=== PATIENT | female | born 1945 | race Caucasian/White ===

== ENCOUNTER 2017-07-14 12:12 | Emergency (ER) | payer OTHER ==
--- NOTE | 2017-07-14 12:22 | DR.GENAD ---
HPI - HPI Comment HPI Comment: HISTORY BELOW. - Complaint/Symptoms Chief Complaint Doctors Comments: PATIENT HAD AMS. EMS HAD LOW GLUCOSE. D50 GIVEN. MENTAL STATUS IMPROVED. BP ELEVATED. KNOWN HYPERTENSIVE, HAVE NOT TAKEN BP MEDS TODAY. NO FEVER. NO CHEST PAIN, NO HISTORY OF TRAUMA. NO DYSURIA. Chief Complaint:: AMS. - Nurses notes reviewed Nurses Notes Review: Yes - Source History Provided: Patient - Mode of Arrival Mode of Arrival: Stretcher - Timing Came on: Suddenly - Duration Duration: Since Onset Duration: Minutes - Severity Severity: Moderate ROS - Review of Systems Constitutional: No Symptoms Reported Eyes: No Symptoms Reported ENTM: No Symptoms Reported Respiratoy: No Symptoms Reported Cardiovascular: Other (ELEVATED BP.) Gastrointestinal/Abdominal: No Symptoms Reported Genitourinary: No Symptoms Reported Neurological: No Symptoms Reported Musculoskeletal: No Symptoms Reported Integumentary: No Symptoms Reported Hematologic/Lymphatic: No Symptoms Reported Endocrine: Other (HYPOGLYCEMIA) All Other Systems: Reviewed and Negative Unable to Obtain Due To: Altered mental status PE - Vital Signs Vitals: Temperature 97.1 F Pulse Rate [Left Radial] 79 Pulse Rate 103 Respiratory Rate 20 Blood Pressure [Right Arm] 172/77 Blood Pressure 197/79 O2 Sat by Pulse Oximetry 99 - General Limitations: No Limitations General Appearance: Alert - Head Head Exam: Normal Inspection - Eyes Eye exam: Normal Appearance - ENT ENT Exam: Normal External Ear Exam External Ear Exam: Normal External Inspection TM/Canal Exam: Bilateral Normal Nose Exam: Normal Nose Exam Mouth Exam: Normal Inspection Throat Exam: Tonsillar Erythema - Neck Neck Exam: Trachea Midline - Chest Chest Inspection: Symmetric Chest Wall Rise - Respiratory Respiratory Exam: Normal Lung Sounds Bilat Respiratory Exam: Bilateral Clear to Auscultation - Cardiovascular Cardiovascular Exam: Regular Rate, Normal Rhythm, Normal Heart Sounds - Abdominal Exam Abdominal Exam: Normal Bowel Sounds, Soft. negative: Tenderness - Extremities Extremities Exam: Normal Inspection - Back Back Exam: Normal Inspection - Neurologic Neurological Exam: Alert, Oriented X3, CN II-XII Intact, Normal Gait, Reflexes Normal. negative: Motor Sensory Deficit - Psychiatric Psychiatric Exam: Normal Affect, Normal Mood - Skin Skin Exam: Normal Color MDM - Additional Information Additional Information Obtained From: Family - Differential Diagnosis Differential Diagnosis: HYPOGLYCEMIA, HYPERTENSION. Course - Treatment Treatment: SEE ORDERS. - Education/Counseling Education/Counseling: Patient, Family, Education Educated On: Treatment, Diagnosis, Needs for Follow Up ROR - Labs Reviewed Laboratory Results Reviewed?: Yes Result Diagrams: 07/14/17 12:40 07/14/17 12:40 Laboratory: WBC 14.8 X10^3/uL (3.6-10.0) H 07/14/17 12:40 RBC 4.36 X10^6/uL (3.5-5.4) 07/14/17 12:40 Hgb 12.9 g/dL (12.0-16.0) 07/14/17 12:40 Hct 39.1 % (36.0-47.0) 07/14/17 12:40 MCV 89.8 fL (80.0-100.0) 07/14/17 12:40 MCH 29.6 pg (27.0-34.0) 07/14/17 12:40 MCHC 33.0 g/dL (33.0-35.0) 07/14/17 12:40 RDW 14.6 % (11.6-16.5) 07/14/17 12:40 Plt Count 296 X10^3/uL (150.0-450.0) 07/14/17 12:40 MPV 6.7 fL (7.4-11.0) L 07/14/17 12:40 Neut % (Auto) 86.6 % (42.0-75.0) H 07/14/17 12:40 Lymph % (Auto) 4.4 % (21.0-51.0) L 07/14/17 12:40 [place] % (Auto) 8.8 % (0.0-13.0) 07/14/17 12:40 Eos % (Auto) 0.0 % (0.9-2.9) L 07/14/17 12:40 Baso % (Auto) 0.2 % (0.2-1.0) 07/14/17 12:40 Neut # (Auto) 12.9 x10^3/uL (2.2-4.8) H 07/14/17 12:40 Lymph # (Auto) 0.7 X10^3/uL (1.3-2.9) L 07/14/17 12:40 [place] # (Auto) 1.3 x10^3/uL (0.3-0.8) H 07/14/17 12:40 Eos # (Auto) 0.0 x10^3/uL (0.0-0.2) 07/14/17 12:40 Baso # (Auto) 0.0 X10^3/uL (0.0-0.1) 07/14/17 12:40 Absolute Nucleated RBC 0.0 /100WBC 07/14/17 12:40 Sodium 133 mmol/L (136-145) L 07/14/17 12:40 Corrected Sodium 136 mmol/L (136-145) 07/14/17 12:40 Potassium 3.9 mmol/L (3.5-5.1) 07/14/17 12:40 Chloride 97 mmol/L (98-107) L 07/14/17 12:40 Carbon Dioxide 16.7 mmol/L (21-32) L 07/14/17 12:40 BUN 31 mg/dL (7-18) H 07/14/17 12:40 Creatinine 1.60 mg/dL (0.55-1.02) H 07/14/17 12:40 Est GFR (MDRD) Af Amer 41 (>60) L 07/14/17 12:40 Est GFR (MDRD) Non-Af 33 (>60) L 07/14/17 12:40 Glucose 212 mg/dL (65-99) H 07/14/17 12:40 POC Glucose (mg/dL) 318 mg/dL (65-99) H 07/14/17 15:04 Calcium 8.5 mg/dL (8.5-10.1) 07/14/17 12:40 Corrected Calcium 9.1 mg/dL (8.5-10.1) 07/14/17 12:40 Total Bilirubin 0.40 mg/dL (0.2-1.0) 07/14/17 12:40 AST 29 Units/L (15-37) 07/14/17 12:40 ALT 32 Units/L (12-78) 07/14/17 12:40 Alkaline Phosphatase 83 Units/L (46-116) 07/14/17 12:40 Total Protein 6.9 g/dL (6.4-8.2) 07/14/17 12:40 Albumin 3.2 g/dL (3.4-5.0) L 07/14/17 12:40 Globulin 3.7 g/dL (2.5-4.5) 07/14/17 12:40 Albumin/Globulin Ratio 0.9 Ratio (1.1-2.1) L 07/14/17 12:40 Specimen Type Random urine 07/14/17 13:42 Urine Color Yellow (YELLOW) 07/14/17 13:42 Urine Appearance Slightly hazy (CLEAR) 07/14/17 13:42 Urine pH 5.0 (5.0 - 8.0) 07/14/17 13:42 Ur Specific [place] 1.015 (1.000-1.030) 07/14/17 13:42 Urine Protein Negative (NEGATIVE) 07/14/17 13:42 Urine Glucose (UA) 1+ (NEGATIVE) 07/14/17 13:42 Urine Ketones 2+ (NEGATIVE) 07/14/17 13:42 Urine Occult Blood 1+ (NEGATIVE) 07/14/17 13:42 Urine Nitrite Negative (NEGATIVE) 07/14/17 13:42 Urine Bilirubin Negative (NEGATIVE) 07/14/17 13:42 Urine Urobilinogen Normal (NORMAL) 07/14/17 13:42 Ur Leukocyte Esterase Negative (NEGATIVE) 07/14/17 13:42 Urine RBC 0-2 /HPF (NONE SEEN) 07/14/17 13:42 Urine WBC 0-2 /HPF (NONE SEEN) 07/14/17 13:42 Ur Squamous Epith Cells Rare /HPF (NEGATIVE) 07/14/17 13:42 Urine Bacteria Negative /HPF (NEGATIVE) 07/14/17 13:42 Hyaline Casts Rare /LPF (NEGATIVE) 07/14/17 13:42 Ur Culture Indicated? No/not indicated 07/14/17 13:42 - Diagnosis Discharge Problem: Hypoglycemia Hypertension Qualifiers: Hypertension type: essential hypertension Qualified Code(s): I10 - Essential ( primary) hypertension - Discharge Plan Disposition: 01 HOME, SELF-CARE Condition: Stable - Follow ups/Referrals Follow ups/Referrals: JENNA SALINAS [Primary Care Provider] - 3 days - Instructions Instructions: Hypertension, [id number], Hypoglycemia, Caiv-si-Fxts Additional Instructions: RETURN TO ED IF WORSE. HOLD YOUR MED TODAY AND TOMORROW. SEE YOUR DOCTOR IN AM. BLOOD SUGAR CHECK EVERY 4 HRS AT HOME AND CHART AND TAKE TO YOUR
[2017-07-14 12:29] VITALS: BMI 24.7
[2017-07-14 12:49] LABS: BASOPHILS % (AUTO) 0.2 % (0.2-1.0); HEMATOCRIT 39.1 % (36.0-47.0); HEMOGLOBIN 12.9 g/dL (12.0-16.0); LYMPHOCYTES # (AUTO) 0.7 X10^3/uL (1.3-2.9); LYMPHOCYTES % (AUTO) 4.4 % (21.0-51.0); MEAN CORPUSCULAR HEMOGLOBIN 29.6 pg (27.0-34.0); MEAN CORPUSCULAR VOLUME 89.8 fL (80.0-100.0); MEAN PLATELET VOLUME 6.7 fL (7.4-11.0); MONOCYTES # (AUTO) 1.3 x10^3/uL (0.3-0.8); MONOCYTES % (AUTO) 8.8 % (0.0-13.0); NEUTROPHILS # (AUTO) 12.9 x10^3/uL (2.2-4.8); NEUTROPHILS % (AUTO) 86.6 % (42.0-75.0); PLATELET COUNT 296 X10^3/uL (150.0-450.0); RED BLOOD COUNT 4.36 X10^6/uL (3.5-5.4); RED CELL DISTRIBUTION WIDTH 14.6 % (11.6-16.5); WHITE BLOOD COUNT 14.8 X10^3/uL (3.6-10.0)
[2017-07-14 13:02] LABS: ALBUMIN 3.2 g/dL (3.4-5.0); CALCIUM 8.5 mg/dL (8.5-10.1); CARBON DIOXIDE 16.7 mmol/L (21-32); COR CA(FOR HYPOALB) 9.1 mg/dL (8.5-10.1); CREATININE 1.6 mg/dL (0.55-1.02); TOTAL PROTEIN 6.9 g/dL (6.4-8.2)
[2017-07-14 13:52] LABS: BILIRUBIN,URINE NEGATIVE (NEGATIVE); BLOOD/HEMOGLOBIN,URINE 1+ (NEGATIVE); GLUCOSE, URINE 1+ (NEGATIVE); KETONES,URINE 2+ (NEGATIVE); LEUKOCYTE ESTERASE ,URINE NEGATIVE (NEGATIVE); NITRITES,URINE NEGATIVE (NEGATIVE); PROTEIN,URINE NEGATIVE (NEGATIVE); UROBILINOGEN,URINE NORMAL (NORMAL)
[2017-07-14 13:53] LABS: COLOR,URINE YELLOW (YELLOW)
[2017-07-14 13:54] LABS: APPEARANCE,URINE SLIGHTLY HAZY (CLEAR)
[2017-07-14 14:02] LABS: RBC,URINE 0-2 /HPF (NONE SEEN); SQUAMOUS EPITHELIAL CELL,UR RARE /HPF (NEGATIVE)
[2017-07-14 14:03] LABS: BACTERIA,URINE NEGATIVE /HPF (NEGATIVE); HYALINE CASTS, URINE RARE /LPF (NEGATIVE)
[2017-07-14 15:00] VITALS: BP 172/77
== END 2017-07-14 15:46 | disposition home or self-care (01) ==
LOC: ER 12:26
DX: E16.2 Hypoglycemia, unspecified (principal); I10 Essential (primary) hypertension
CPT/HCPCS: 36415; 80053; 81001; 85025; 96365; 99283; A4222